=== PATIENT | female | born 1970 | race Caucasian/White ===

== ENCOUNTER 2017-09-15 18:39 | Emergency (ER) | payer MEDICAID, OTHER ==
[~2017-09-15] VITALS: Ht 157.5 cm; Wt 139.6 kg
[~2017-09-15 18:39] MED LIST: ERGO500017 PO; METF500T4 PO; MIRT15TA4 PO; RANI150C PO
[2017-09-15 18:41] VITALS: BP 156/93
[2017-09-15 19:42] LABS: BASOPHILS # (AUTO) 0.06 x10^3/uL (0-0.1); BASOPHILS % (AUTO) 1 % (0-1); EOSINOPHILS # (AUTO) 0.23 x10^3/uL (0-0.4); EOSINOPHILS % (AUTO) 2 % (1-7); LYMPHOCYTES # (AUTO) 3.02 x10^3/uL (1-3.4); LYMPHOCYTES % (AUTO) 29 % (22-44); MD NO; MEAN CORPUSCULAR HEMOGLOBIN 30.3 pg (27.0-34.8); MEAN CORPUSCULAR HGB CONC 33.9 g/dL (32.4-35.8); MEAN CORPUSCULAR VOLUME 89.6 fL (80-100); MEAN PLATELET VOLUME 8.3 fL (7.4-10.4); MONOCYTES # (AUTO) 0.73 x10^3/uL (0.2-0.8); MONOCYTES % (AUTO) 7 % (2-9); NEUTROPHILS # (AUTO) 6.22 x10^3/uL (1.8-6.8); NEUTROPHILS % (AUTO) 61 % (42-75); PLATELET COUNT 293 x10^3/uL (130-400); RED BLOOD COUNT 5.49 x10^6/uL (3.82-5.3); RED CELL DISTRIBUTION WIDTH 13.6 % (9.6-15.2)
[2017-09-15 19:46] LABS: MICROSCOPIC AUTO
[2017-09-15 19:48] LABS: CULTURE INDICATED? YES
[2017-09-15 19:52] LABS: ALBUMIN 3.6 g/dL (3.4-5.0); ANION GAP 14 mmol/L (5-15); CHLORIDE 106 mmol/L (98-107)
[2017-09-15 19:56] LABS: ALANINE AMINOTRANSFERASE 52 U/L (12-78); ALKALINE PHOSPHATASE 138 U/L (45-117); BILIRUBIN,TOTAL 0.4 mg/dL (0.2-1.0); CREATININE 1.14 mg/dL (0.55-1.02); TOTAL PROTEIN 8.1 g/dL (6.4-8.2)
== END 2017-09-15 21:45 | disposition home or self-care (01) ==
LOC: ED 21:39
DX: S39.012A Strain of muscle, fascia and tendon of lower back, initial encounter (principal); G25.81 Restless legs syndrome; N30.90 Cystitis, unspecified without hematuria; K21.9 Gastro-esophageal reflux disease without esophagitis; X58.XXXA Exposure to other specified factors, initial encounter; Y93.89 Activity, other specified; Y92.89 Other specified places as the place of occurrence of the external cause; Y99.2 Volunteer activity
CPT/HCPCS: 36415; 71045; 74176; 80053; 81001; 85025; 87086; 99285

== ENCOUNTER 2018-01-04 03:02 | Emergency (ER) | payer OTHER ==
[~2018-01-04] VITALS: Ht 157.5 cm; Wt 141.8 kg
[~2018-01-04 03:02] MED LIST changes: -METF500T4 PO; +METF500T5 PO
[2018-01-04 03:04] VITALS: BP 146/89
== END 2018-01-04 04:34 | disposition home or self-care (01) ==
LOC: ED 04:21
DX: S93.492A Sprain of other ligament of left ankle, initial encounter (principal); G89.11 Acute pain due to trauma; Z98.51 Tubal ligation status; X58.XXXA Exposure to other specified factors, initial encounter; Y93.89 Activity, other specified; Y92.89 Other specified places as the place of occurrence of the external cause; Y99.8 Other external cause status
CPT/HCPCS: 99284

== ENCOUNTER 2019-04-10 09:51 | Emergency (ER) | payer OTHER ==
[~2019-04-10] VITALS: Ht 157.5 cm; Wt 141.9 kg
[~2019-04-10 09:51] MED LIST changes: +METF500T17 PO; -METF500T5 PO; +MIRT-34 PO; -MIRT15TA4 PO
[2019-04-10 09:59] VITALS: BP 135/61
[2019-04-10] MEDS ORDERED: GABA300C10 PO (10:18)
[2019-04-10] MEDS ORDERED: CYCL5TAB PO (10:18)
[2019-04-10] MEDS ORDERED: HYDR-826 PO (10:18)
[2019-04-10] MEDS ORDERED: LIDOCAINE-MPF 1%, 5ML ONE (10:19)
[2019-04-10] MEDS ORDERED: DIPH,PERTUSS(ACELL),TET VAC/PF 0.5 ML IM-VACC ONE ×2 (10:19→10:30)
[2019-04-10] MEDS ORDERED: LIDOCAINE-MPF 1%, 5ML INFIL ONE (10:30)
[2019-04-10] MEDS ORDERED: NEOSPORIN OINT. PKT 1 PACKET ONE (10:45)
== END 2019-04-10 10:51 ==
LOC: ED 10:50
DX: S60.472A Other superficial bite of right middle finger, initial encounter (principal); W54.0XXA Bitten by dog, initial encounter; Y93.89 Activity, other specified; Y92.009 Unspecified place in unspecified non-institutional (private) residence as the place of occurrence of the external cause; Y99.8 Other external cause status
CPT/HCPCS: 90471; 90715